=== PATIENT | male | born 1975 | race Two or more races ===

== ENCOUNTER 2020-07-19 22:58 | Emergency (ER) | payer MEDICAID ==
[~2020-07-19] VITALS: Ht 177.8 cm; Wt 77.0 kg
[2020-07-20] MEDS ORDERED: IBUPROFEN 600MG TABLET PO ONE (00:30)
[2020-07-20 01:56] VITALS: BP 117/80
== END 2020-07-20 02:53 | disposition home or self-care (01) ==
LOC: ER 22:58
DX: S99.822A Other specified injuries of left foot, initial encounter (principal); E78.00 Pure hypercholesterolemia, unspecified; X58.XXXA Exposure to other specified factors, initial encounter; Y93.9 Activity, unspecified; Y92.9 Unspecified place or not applicable
CPT/HCPCS: 29515; 73590; 73630; 99284; Z7610